=== PATIENT | female | born 1955 | race Caucasian/White ===

== ENCOUNTER 2018-01-21 16:00 | Outpatient (RCR) | payer OTHER, SELFPAY ==
--- NOTE | 2017-09-12 18:09 | PT.OIE ---
Current Diagnoses Low back pain (09/11/17) Provider Visit Care Team Role Provider Type Radha Haynes MD Attending Provider Non-Staff Primary Care Provider Specialty: Family Practice Address: [address] [place] [address], [place], [address] Email: Physical Therapy Initial Evaluation PT-OP-A Visit Information Start: 09/12/17 17:34 Freq: Status: Active Protocol: Document 09/11/17 10:00 [facility] (Rec: 09/12/17 17:47 [facility] [email or web address]) Out-Patient Physical Therapy Visit Information Visit Information Visit Type Initial Evaluation Visit Start Time 10:00 Visit Stop Time 10:45 Total Visit Minutes 45 Visit Number 1 Evaluation Information Evaluation Date 09/11/17 PT-OP-B Current Condition Start: 09/12/17 17:34 Freq: Status: Active Protocol: Document 09/11/17 10:00 [facility] (Rec: 09/12/17 17:47 [facility] [email or web address]) Current Condition History of Current Condition Onset Date 3 1/2 weeks ago pain began following a hike Current Complaints c/o SI joint pain and left gluteal pain, pain across the anterior pelvis History of Current Condition 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 She reports she tries to get back into shape once school is out each year. She has done minimal walking this past school year. 3 1/2 weeks ago she went on a hike and up was uphill. She began noting pain in her SI joint and left gluteal region a few days afterward and the pain then increased over the next few days. 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 Decreased flexibility of the piriformis and iliopsoas Joint Mobility Assessment Joint Mobility Assessment + tests for SI instability + ASLR test B PT-OP-J Posture/Palpation/Skin Start: 09/12/17 17:34 Freq: Status: Active Protocol: Document 09/11/17 10:00 [facility] (Rec: 09/12/17 18:07 [facility] [email or web address]) Posture Evaluation Position Standing L-Spine Posture Increased Lordosis Palpation Assessment Location Three Palpation Location B PSIS Palpation Findings Tenderness Two Palpation Location lumbar paraspinals Palpation Findings Soft Tissue Tightness Spasm Muscle Guarding One Palpation Location left piriformis Palpation Findings Soft Tissue Tightness Spasm Muscle Guarding Tenderness PT-OP-K Range of Motion Start: 09/12/17 17:34 Freq: Status: Active Protocol: Document 09/11/17 10:00 [facility] (Rec: 09/12/17 18:07 [facility] [email or web address]) Lumbar Spine Range of Motion Lumbar Spine Active Testing Position standing Flexion 50 Comments decreased lumbar flexion and flattened lumbar spine with forward bend PT-OP-M Strength Start: 09/12/17 18:07 Freq: Status: Active Protocol: Document 09/11/17 10:00 [facility] (Rec: 09/12/17 18:08 [facility] [email or web address]) Trunk Strength Trunk Manual Muscle Testing Core Stabilization Decreased activation of the transverse abdominal musculature and + ASLR test B Hip Strength Hip Manual Muscle Testing Right Extension (S1) 4 Good Abduction 4 Good Left Extension (S1) 3+ Fair+ Abduction 3+ Fair+ PT-OP-Q Treatments Start: 09/12/17 17:34 Freq: Status: Active Protocol: Document 09/11/17 10:00 [facility] (Rec: 09/12/17 18:07 [facility] [email or web address]) Therapeutic Exercises Other Exercises 3 Other Exercise Name TA isolation in quadraped Side bilateral Reps/Minutes 10 reps 2 Other Exercise Name half kneeling hip flexor stretch 1 Other Exercise Name quadraped cat/cow Side bilateral Reps/Minutes 10 reps PT-OP-T Assessment and Plan Start: 09/12/17 17:34 Freq: Status: Active Protocol: Document 09/11/17 10:00 [facility] (Rec: 09/12/17 18:07 [facility] [email or web address]) Physical Therapy Assessment Rehab Potential Rehabilitation Potential Excellent Evaluation Complexity Number of Personal Factors/Comorbidities 0 Number of Body Systems Impaired 1-2 Clinical Presentation at Evaluation Stable Impairments Impairments Functional Activities Pain Posture ROM Soft Tissue Mobility Strength Goals Four Impairment Decreased strength of the inner core musculatrue with SI instability Casing Tier Goal (LTG) Improve both pelvic floor and transverse abdominal strength to improve SI and lumbar stability LTG Duration 8 weeks Three Impairment pain rated 3-4/10 made worse with activity Casing Tier Goal (LTG) Tabitha reports a decreased pain level and is able to return to walking and hiking without pain following Two Impairment Decreased lumbar ROM into flexion Short Term Goal (STG) Tabitha is able to perform a standing forward bend with improved lumbar flexion STG Duration 6 weeks One Impairment decreased flexibility of the piriformis and hip flexors L>R Short Term Goal (STG) Tabitha is educated on a home flexibility program to address tightness in the hip musculature STG Duration 4 weeks Assessment Summary Assessment Tabitha presents to physical therapy today with symptoms of SI instability, weakness of her core musculature, and tightness in the left > right hip creating SI dysfunction and pain. She is limited in walking and hiking duration due to pain She was instructed in lumbar spine flexion exercises today and a stretching routine was initiated to begin reducing tightness in her iliopsoas and piriformis. Treatment will progress to dynamic stabilization as her goal is to return to hiking. Physical Therapy Plan Frequency and Duration Frequency of Treatment 2x/Week Duration of Treatment 8 weeks Plan of Care Start Date 09/11/17 Plan of Care End Date 11/06/17 Therapeutic Interventions Therapeutic Interventions Home Exercise Program Manual Therapy Neuromuscular Re-education Self-Care/Home Management Soft Tissue Mobilization Therapeutic Exercises Modalities Cold Pack/Ice Massage Ultrasound Next Visit Focus/Plan Next Note Type Treatment Note Next Visit Plan begin working on TA facilitation in supine and progress stretches as tolerated
--- NOTE | 2017-09-12 18:10 | PT.OPPOC ---
Current Diagnoses Low back pain (09/11/17) Provider Visit Care Team Role Provider Type Radha Haynes MD Attending Provider Non-Staff Primary Care Provider Specialty: Family Practice Address: [address] [place] [address], [place], [address] Email: Plan Of Care PT-OP-T Assessment and Plan Start: 09/12/17 17:34 Freq: Status: Active Protocol: Document 09/11/17 10:00 [facility] (Rec: 09/12/17 18:07 [facility] [email or web address]) Physical Therapy Assessment Rehab Potential Rehabilitation Potential Excellent Evaluation Complexity Number of Personal Factors/Comorbidities 0 Number of Body Systems Impaired 1-2 Clinical Presentation at Evaluation Stable Impairments Impairments Functional Activities Pain Posture ROM Soft Tissue Mobility Strength Goals Four Impairment Decreased strength of the inner core musculatrue with SI instability Computer Networking Instructor Adjunct Goal (LTG) Improve both pelvic floor and transverse abdominal strength to improve SI and lumbar stability LTG Duration 8 weeks Three Impairment pain rated 3-4/10 made worse with activity Jail Goal (LTG) Tabitha reports a decreased pain level and is able to return to walking and hiking without pain following Two Impairment Decreased lumbar ROM into flexion Short Term Goal (STG) Tabitha is able to perform a standing forward bend with improved lumbar flexion STG Duration 6 weeks One Impairment decreased flexibility of the piriformis and hip flexors L>R Short Term Goal (STG) Tabitha is educated on a home flexibility program to address tightness in the hip musculature STG Duration 4 weeks Assessment Summary Assessment Tabitha presents to physical therapy today with symptoms of SI instability, weakness of her core musculature, and tightness in the left > right hip creating SI dysfunction and pain. She is limited in walking and hiking duration due to painShe was instructed in lumbar spine flexion exercises today and a stretching routine was initiated to begin reducing tightness in her iliopsoas and piriformis. Treatment will progress to dynamic stabilization as her goal is to return to hiking. Physical Therapy Plan Frequency and Duration Frequency of Treatment 2x/Week Duration of Treatment 8 weeks Plan of Care Start Date 09/11/17 Plan of Care End Date 11/06/17 Therapeutic Interventions Therapeutic Interventions Home Exercise Program Manual Therapy Neuromuscular Re-education Self-Care/Home Management Soft Tissue Mobilization Therapeutic Exercises Modalities Cold Pack/Ice Massage Ultrasound Next Visit Focus/Plan Next Note Type Treatment Note Next Visit Plan begin working on TA facilitation in supine and progress stretches as tolerated Plan of Care Dates Plan of Care Start Date 09/11/17 Plan of Care End Date 11/06/17 Please Sign and Return: I have reviewed this Plan of Care and certify that the skilled therapy services above are required to meet the patient?s needs. Physician Signature Date Printed Name and Credentials Clinical Instructor Signature Printed Name and Credentials
--- NOTE | 2017-09-24 08:55 | PT.OTN ---
Current Diagnoses Low back pain (09/19/17) Physical Therapy Treatment Note PT-OP-A Visit Information Start: 09/12/17 17:34 Freq: Status: Active Protocol: Document 09/19/17 11:15 [facility] (Rec: 09/19/17 17:57 [facility] [email or web address]) Out-Patient Physical Therapy Visit Information Visit Information Visit Type Treatment Note Visit Start Time 11:15 Visit Stop Time 12:00 Total Visit Minutes 45 Visit Number 2 Number of TABLE TENDER SLUDGE Visits 0 PT-OP-B Current Condition Start: 09/12/17 17:34 Freq: Status: Active Protocol: Document 09/11/17 10:00 [facility] (Rec: 09/12/17 17:47 [facility] [email or web address]) Current Condition History of Current Condition Onset Date 3 1/2 weeks ago pain began following a hike Current Complaints c/o SI joint pain and left gluteal pain, pain across the anterior pelvis History of Current Condition 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 She reports she tries to get back into shape once school is out each year. She has done minimal walking this past school year. 3 1/2 weeks ago she went on a hike and up was uphill. She began noting pain in her SI joint and left gluteal region a few days afterward and the pain then increased over the next few days. 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 left leg being longer Treatment Goals Patient/Caregiver Goals tabitha's goals include knowing what stretches and strengthening exercises to do at home to prevent further pain and to return to hiking and walking PT-OP-C Subjective Start: 09/12/17 17:34 Freq: Status: Active Protocol: Document 09/19/17 11:15 [facility] (Rec: 09/19/17 17:57 [facility] [email or web address]) OP-PT Subjective Patient Comments Patient Comments Liliana reports she has been working on her stretching and walked 5 days this past week Patient Reported Progress Improving PT-OP-F Manual Assessment Start: 09/12/17 17:34 Freq: Status: Active Protocol: Document 09/11/17 10:00 [facility] (Rec: 09/12/17 18:07 [facility] [email or web address]) Manual Assessments Soft Tissue Assessment Soft Tissue Mobility Assessment left greater than right piriformis and iliopsoas tightness. Decreased flexibility of the piriformis and iliopsoas Joint Mobility Assessment Joint Mobility Assessment + tests for SI instability + ASLR test B PT-OP-J Posture/Palpation/Skin Start: 09/12/17 17:34 Freq: Status: Active Protocol: Document 09/11/17 10:00 [facility] (Rec: 09/12/17 18:07 [facility] [email or web address]) Posture Evaluation Position Standing L-Spine Posture Increased Lordosis Palpation Assessment Location Three Palpation Location B PSIS Palpation Findings Tenderness Two Palpation Location lumbar paraspinals Palpation Findings Soft Tissue Tightness Spasm Muscle Guarding One Palpation Location left piriformis Palpation Findings Soft Tissue Tightness Spasm Muscle Guarding Tenderness PT-OP-K Range of Motion Start: 09/12/17 17:34 Freq: Status: Active Protocol: Document 09/11/17 10:00 [facility] (Rec: 09/12/17 18:07 [facility] [email or web address]) Lumbar Spine Range of Motion Lumbar Spine Active Testing Position standing Flexion 50 Comments decreased lumbar flexion and flattened lumbar spine with forward bend PT-OP-M Strength Start: 09/12/17 18:07 Freq: Status: Active Protocol: Document 09/11/17 10:00 [facility] (Rec: 09/12/17 18:08 [facility] [email or web address]) Trunk Strength Trunk Manual Muscle Testing Core Stabilization Decreased activation of the transverse abdominal musculature and + ASLR test B Hip Strength Hip Manual Muscle Testing Right Extension (S1) 4 Good Abduction 4 Good Left Extension (S1) 3+ Fair+ Abduction 3+ Fair+ PT-OP-Q Treatments Start: 09/12/17 17:34 Freq: Status: Active Protocol: Document 09/19/17 11:15 [facility] (Rec: 09/19/17 17:57 [facility] [email or web address]) Therapeutic Exercises Supine Exercises 1 Supine Exercise Name TA facilitation with marches Sidelying Exercises 1 Sidelying Exercise Name clam shells Sitting Exercises 1 Sitting Exercise Name seated sidebends Other Exercises 4 Other Exercise Name foam roll stretch 3 Other Exercise Name TA isolation in quadraped Side bilateral Reps/Minutes 10 reps 2 Other Exercise Name half kneeling hip flexor stretch 1 Other Exercise Name quadraped cat/cow, sidebends, thoracic rotation Side bilateral Reps/Minutes 10 reps PT-OP-T Assessment and Plan Start: 09/12/17 17:34 Freq: Status: Active Protocol: Document 09/19/17 11:15 [facility] (Rec: 09/19/17 17:57 [facility] [email or web address]) Physical Therapy Assessment Assessment Summary Assessment good tolerance of ther ex, TA facilitation is difficult but continue to focus on this and improve stabilization of deep hip rotators Physical Therapy Plan Frequency and Duration Frequency of Treatment 2x/Week Duration of Treatment 8 weeks Plan of Care Start Date 09/11/17 Plan of Care End Date 11/06/17 Therapeutic Interventions Therapeutic Interventions Home Exercise Program Manual Therapy Neuromuscular Re-education Self-Care/Home Management Soft Tissue Mobilization Therapeutic Exercises Modalities Cold Pack/Ice Massage Ultrasound Next Visit Focus/Plan Next Visit Plan continue working on improved stabilization exercises and stretches as tolerated
--- NOTE | 2017-09-24 14:09 | PT.OTN ---
Current Diagnoses Low back pain (09/24/17) Physical Therapy Treatment Note PT-OP-A Visit Information Start: 09/12/17 17:34 Freq: Status: Active Protocol: Document 09/24/17 13:00 [facility] (Rec: 09/24/17 14:09 [facility] [email or web address]) Out-Patient Physical Therapy Visit Information Visit Information Visit Type Treatment Note Visit Start Time 13:00 Visit Stop Time 13:45 Total Visit Minutes 45 Visit Number 3 Number of PRODUCE BUYER Visits 0 PT-OP-B Current Condition Start: 09/12/17 17:34 Freq: Status: Active Protocol: Document 09/11/17 10:00 [facility] (Rec: 09/12/17 17:47 [facility] [email or web address]) Current Condition History of Current Condition Onset Date 3 1/2 weeks ago pain began following a hike Current Complaints c/o SI joint pain and left gluteal pain, pain across the anterior pelvis History of Current Condition 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 She reports she tries to get back into shape once school is out each year. She has done minimal walking this past school year. 3 1/2 weeks ago she went on a hike and up was uphill. She began noting pain in her SI joint and left gluteal region a few days afterward and the pain then increased over the next few days. 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 left leg being longer Treatment Goals Patient/Caregiver Goals tabitha's goals include knowing what stretches and strengthening exercises to do at home to prevent further pain and to return to hiking and walking PT-OP-C Subjective Start: 09/12/17 17:34 Freq: Status: Active Protocol: Document 09/24/17 13:00 [facility] (Rec: 09/24/17 14:09 [facility] [email or web address]) OP-PT Subjective Patient Comments Patient Comments Tabitha reports very low pain levels today like .5/10 She has been working on her stretches and walking Patient Reported Progress Improving PT-OP-F Manual Assessment Start: 09/12/17 17:34 Freq: Status: Active Protocol: Document 09/11/17 10:00 [facility] (Rec: 09/12/17 18:07 [facility] [email or web address]) Manual Assessments Soft Tissue Assessment Soft Tissue Mobility Assessment left greater than right piriformis and iliopsoas tightness. Decreased flexibility of the piriformis and iliopsoas Joint Mobility Assessment Joint Mobility Assessment + tests for SI instability + ASLR test B PT-OP-J Posture/Palpation/Skin Start: 09/12/17 17:34 Freq: Status: Active Protocol: Document 09/11/17 10:00 [facility] (Rec: 09/12/17 18:07 [facility] [email or web address]) Posture Evaluation Position Standing L-Spine Posture Increased Lordosis Palpation Assessment Location Three Palpation Location B PSIS Palpation Findings Tenderness Two Palpation Location lumbar paraspinals Palpation Findings Soft Tissue Tightness Spasm Muscle Guarding One Palpation Location left piriformis Palpation Findings Soft Tissue Tightness Spasm Muscle Guarding Tenderness PT-OP-K Range of Motion Start: 09/12/17 17:34 Freq: Status: Active Protocol: Document 09/11/17 10:00 [facility] (Rec: 09/12/17 18:07 [facility] [email or web address]) Lumbar Spine Range of Motion Lumbar Spine Active Testing Position standing Flexion 50 Comments decreased lumbar flexion and flattened lumbar spine with forward bend PT-OP-M Strength Start: 09/12/17 18:07 Freq: Status: Active Protocol: Document 09/11/17 10:00 [facility] (Rec: 09/12/17 18:08 [facility] [email or web address]) Trunk Strength Trunk Manual Muscle Testing Core Stabilization Decreased activation of the transverse abdominal musculature and + ASLR test B Hip Strength Hip Manual Muscle Testing Right Extension (S1) 4 Good Abduction 4 Good Left Extension (S1) 3+ Fair+ Abduction 3+ Fair+ PT-OP-Q Treatments Start: 09/12/17 17:34 Freq: Status: Active Protocol: Document 09/24/17 13:00 [facility] (Rec: 09/24/17 14:09 [facility] [email or web address]) Therapeutic Exercises Supine Exercises 3 Supine Exercise Name iliopsoas stretch in ar test position with manual assistance 2 Supine Exercise Name piriformis stretch 1 Supine Exercise Name TA facilitation with marches Other Exercises 6 Other Exercise Name kiki pose 5 Other Exercise Name TA in quadraped with opp arm lifts 4 Other Exercise Name foam roll stretch Comments with active arm abduction and opp flexion 3 Other Exercise Name TA isolation in quadraped Side bilateral Reps/Minutes 10 reps 1 Other Exercise Name quadraped cat/cow, sidebends, thoracic rotation Side bilateral Reps/Minutes 10 reps PT-OP-T Assessment and Plan Start: 09/12/17 17:34 Freq: Status: Active Protocol: Document 09/24/17 13:00 [facility] (Rec: 09/24/17 14:09 [facility] [email or web address]) Physical Therapy Assessment Assessment Summary Assessment decreased complaints of pain and improving iliopsoas length Physical Therapy Plan Frequency and Duration Frequency of Treatment 2x/Week Duration of Treatment 8 weeks Plan of Care Start Date 09/11/17 Plan of Care End Date 11/06/17 Therapeutic Interventions Therapeutic Interventions Home Exercise Program Manual Therapy Neuromuscular Re-education Self-Care/Home Management Soft Tissue Mobilization Therapeutic Exercises Modalities Cold Pack/Ice Massage Ultrasound Next Visit Focus/Plan Next Note Type Treatment Note Next Visit Plan continue working on improved stabilization exercises and stretches as tolerated. Progress dynamic stabilization
--- NOTE | 2017-10-01 18:09 | PT.OTN ---
Current Diagnoses Low back pain (10/01/17) Physical Therapy Treatment Note PT-OP-A Visit Information Start: 09/12/17 17:34 Freq: Status: Active Protocol: Document 10/01/17 17:58 [facility] (Rec: 10/01/17 18:09 [facility] [email or web address]) Out-Patient Physical Therapy Visit Information Visit Information Visit Type Treatment Note Visit Start Time 13:00 Visit Stop Time 13:45 Total Visit Minutes 45 Visit Number 4 Number of POWERHOUSE MECHANIC Visits 0 PT-OP-B Current Condition Start: 09/12/17 17:34 Freq: Status: Active Protocol: Document 09/11/17 10:00 [facility] (Rec: 09/12/17 17:47 [facility] [email or web address]) Current Condition History of Current Condition Onset Date 3 1/2 weeks ago pain began following a hike Current Complaints c/o SI joint pain and left gluteal pain, pain across the anterior pelvis History of Current Condition 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 She reports she tries to get back into shape once school is out each year. She has done minimal walking this past school year. 3 1/2 weeks ago she went on a hike and up was uphill. She began noting pain in her SI joint and left gluteal region a few days afterward and the pain then increased over the next few days. 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 left leg being longer Treatment Goals Patient/Caregiver Goals tabitha's goals include knowing what stretches and strengthening exercises to do at home to prevent further pain and to return to hiking and walking PT-OP-C Subjective Start: 09/12/17 17:34 Freq: Status: Active Protocol: Document 10/01/17 17:58 [facility] (Rec: 10/01/17 18:09 [facility] [email or web address]) OP-PT Subjective Patient Comments Patient Comments Tabitha continues to note low pain levels and has been working on her home program Patient Reported Progress Improving PT-OP-F Manual Assessment Start: 09/12/17 17:34 Freq: Status: Active Protocol: Document 09/11/17 10:00 [facility] (Rec: 09/12/17 18:07 [facility] [email or web address]) Manual Assessments Soft Tissue Assessment Soft Tissue Mobility Assessment left greater than right piriformis and iliopsoas tightness. Decreased flexibility of the piriformis and iliopsoas Joint Mobility Assessment Joint Mobility Assessment + tests for SI instability + ASLR test B PT-OP-J Posture/Palpation/Skin Start: 09/12/17 17:34 Freq: Status: Active Protocol: Document 09/11/17 10:00 [facility] (Rec: 09/12/17 18:07 [facility] [email or web address]) Posture Evaluation Position Standing L-Spine Posture Increased Lordosis Palpation Assessment Location Three Palpation Location B PSIS Palpation Findings Tenderness Two Palpation Location lumbar paraspinals Palpation Findings Soft Tissue Tightness Spasm Muscle Guarding One Palpation Location left piriformis Palpation Findings Soft Tissue Tightness Spasm Muscle Guarding Tenderness PT-OP-K Range of Motion Start: 09/12/17 17:34 Freq: Status: Active Protocol: Document 09/11/17 10:00 [facility] (Rec: 09/12/17 18:07 [facility] [email or web address]) Lumbar Spine Range of Motion Lumbar Spine Active Testing Position standing Flexion 50 Comments decreased lumbar flexion and flattened lumbar spine with forward bend PT-OP-M Strength Start: 09/12/17 18:07 Freq: Status: Active Protocol: Document 09/11/17 10:00 [facility] (Rec: 09/12/17 18:08 [facility] [email or web address]) Trunk Strength Trunk Manual Muscle Testing Core Stabilization Decreased activation of the transverse abdominal musculature and + ASLR test B Hip Strength Hip Manual Muscle Testing Right Extension (S1) 4 Good Abduction 4 Good Left Extension (S1) 3+ Fair+ Abduction 3+ Fair+ PT-OP-Q Treatments Start: 09/12/17 17:34 Freq: Status: Active Protocol: Document 10/01/17 17:58 [facility] (Rec: 10/01/17 18:09 [facility] [email or web address]) Therapeutic Exercises Supine Exercises 3 Supine Exercise Name iliopsoas stretch in ar test position with manual assistance 2 Supine Exercise Name piriformis stretch 1 Supine Exercise Name TA facilitation with marches Comments level 1 b Sidelying Exercises 1 Sidelying Exercise Name clam shells Other Exercises 6 Other Exercise Name kiki pose Comments walk hands side to side 5 Other Exercise Name TA in quadraped with opp arm lifts and opp leg lifts 3 Other Exercise Name TA isolation in quadraped Side bilateral Reps/Minutes 10 reps 1 Other Exercise Name quadraped cat/cow, sidebends, thoracic rotation Side bilateral Reps/Minutes 10 reps PT-OP-T Assessment and Plan Start: 09/12/17 17:34 Freq: Status: Active Protocol: Document 10/01/17 17:58 [facility] (Rec: 10/01/17 18:09 [facility] [email or web address]) Physical Therapy Assessment Assessment Summary Assessment good progress, begin to work on dynamic lumbar stabilzation in upright positions Physical Therapy Plan Frequency and Duration Frequency of Treatment 2x/Week Duration of Treatment 8 weeks Plan of Care Start Date 09/11/17 Plan of Care End Date 11/06/17 Therapeutic Interventions Therapeutic Interventions Home Exercise Program Manual Therapy Neuromuscular Re-education Self-Care/Home Management Soft Tissue Mobilization Therapeutic Exercises Modalities Cold Pack/Ice Massage Ultrasound Next Visit Focus/Plan Next Note Type Treatment Note Next Visit Plan begin working on upright stabilization and dynamic stabilization
--- NOTE | 2017-10-07 06:24 | PT.OTN ---
Current Diagnoses Low back pain (10/03/17) Physical Therapy Treatment Note PT-OP-A Visit Information Start: 09/12/17 17:34 Freq: Status: Active Protocol: Document 10/03/17 13:00 [facility] (Rec: 10/07/17 06:24 [facility] [email or web address]) Out-Patient Physical Therapy Visit Information Visit Information Visit Type Treatment Note Visit Start Time 13:00 Visit Stop Time 13:45 Total Visit Minutes 45 Visit Number 5 Number of SIGNAL WORKER HELPER Visits 0 PT-OP-B Current Condition Start: 09/12/17 17:34 Freq: Status: Active Protocol: Document 09/11/17 10:00 [facility] (Rec: 09/12/17 17:47 [facility] [email or web address]) Current Condition History of Current Condition Onset Date 3 1/2 weeks ago pain began following a hike Current Complaints c/o SI joint pain and left gluteal pain, pain across the anterior pelvis History of Current Condition 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 She reports she tries to get back into shape once school is out each year. She has done minimal walking this past school year. 3 1/2 weeks ago she went on a hike and up was uphill. She began noting pain in her SI joint and left gluteal region a few days afterward and the pain then increased over the next few days. 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 Patient Reported Progress Improving PT-OP-F Manual Assessment Start: 09/12/17 17:34 Freq: Status: Active Protocol: Document 09/11/17 10:00 [facility] (Rec: 09/12/17 18:07 [facility] [email or web address]) Manual Assessments Soft Tissue Assessment Soft Tissue Mobility Assessment left greater than right piriformis and iliopsoas tightness. Decreased flexibility of the piriformis and iliopsoas Joint Mobility Assessment Joint Mobility Assessment + tests for SI instability + ASLR test B PT-OP-J Posture/Palpation/Skin Start: 09/12/17 17:34 Freq: Status: Active Protocol: Document 09/11/17 10:00 [facility] (Rec: 09/12/17 18:07 [facility] [email or web address]) Posture Evaluation Position Standing L-Spine Posture Increased Lordosis Palpation Assessment Location Three Palpation Location B PSIS Palpation Findings Tenderness Two Palpation Location lumbar paraspinals Palpation Findings Soft Tissue Tightness Spasm Muscle Guarding One Palpation Location left piriformis Palpation Findings Soft Tissue Tightness Spasm Muscle Guarding Tenderness PT-OP-K Range of Motion Start: 09/12/17 17:34 Freq: Status: Active Protocol: Document 09/11/17 10:00 [facility] (Rec: 09/12/17 18:07 [facility] [email or web address]) Lumbar Spine Range of Motion Lumbar Spine Active Testing Position standing Flexion 50 Comments decreased lumbar flexion and flattened lumbar spine with forward bend PT-OP-M Strength Start: 09/12/17 18:07 Freq: Status: Active Protocol: Document 09/11/17 10:00 [facility] (Rec: 09/12/17 18:08 [facility] [email or web address]) Trunk Strength Trunk Manual Muscle Testing Core Stabilization Decreased activation of the transverse abdominal musculature and + ASLR test B Hip Strength Hip Manual Muscle Testing Right Extension (S1) 4 Good Abduction 4 Good Left Extension (S1) 3+ Fair+ Abduction 3+ Fair+ PT-OP-Q Treatments Start: 09/12/17 17:34 Freq: Status: Active Protocol: Document 10/03/17 13:00 [facility] (Rec: 10/07/17 06:24 [facility] [email or web address]) Therapeutic Exercises Supine Exercises 3 Supine Exercise Name iliopsoas stretch in ar test position with manual assistance 2 Supine Exercise Name piriformis stretch 1 Supine Exercise Name TA facilitation with marches Comments level 1 b Sidelying Exercises 1 Sidelying Exercise Name clam shells Equipment Used level 1 resistance band Reps/Minutes 3x10 Sitting Exercises 1 Sitting Exercise Name seated sidebends Standing Exercises 1 Standing Exercise Name standing squats and mini lunges Reps/Minutes 2 x 10 each Comments with core activation Other Exercises 6 Other Exercise Name kiki pose Comments walk hands side to side 5 Other Exercise Name TA in quadraped with opp arm lifts and opp leg lifts 4 Other Exercise Name foam roll stretch Comments with active arm abduction and opp flexion 3 Other Exercise Name TA isolation in quadraped Side bilateral Reps/Minutes 10 reps 2 Other Exercise Name half kneeling hip flexor stretch 1 Other Exercise Name quadraped cat/cow, sidebends, thoracic rotation Side bilateral Reps/Minutes 10 reps PT-OP-T Assessment and Plan Start: 09/12/17 17:34 Freq: Status: Active Protocol: Document 10/03/17 13:00 [facility] (Rec: 10/07/17 06:24 [facility] [email or web address]) Physical Therapy Assessment Assessment Summary Assessment Tabitha was able to tolerate upright dynamic strengthening with squats and lunges. She requires verbal cues for knee positioning. She would benefit from continuing to progress dynamic exercises Physical Therapy Plan Frequency and Duration Frequency of Treatment 2x/Week Duration of Treatment 8 weeks Plan of Care Start Date 09/11/17 Plan of Care End Date 11/06/17 Therapeutic Interventions Therapeutic Interventions Home Exercise Program Manual Therapy Neuromuscular Re-education Self-Care/Home Management Soft Tissue Mobilization Therapeutic Exercises Modalities Cold Pack/Ice Massage Ultrasound Next Visit Focus/Plan Next Note Type Treatment Note Next Visit Plan continue to focus on dynamic stabilization for SI stability and flexbility exercises
--- NOTE | 2017-12-10 17:40 | PT.OTN ---
Current Diagnoses Low back pain (12/10/17) Physical Therapy Treatment Note PT-OP-A Visit Information Start: 09/12/17 17:34 Freq: Status: Active Protocol: Document 12/10/17 17:33 [facility] (Rec: 12/10/17 17:40 [facility] [email or web address]) Out-Patient Physical Therapy Visit Information Visit Information Visit Type Progress Note Visit Start Time 16:00 Visit Stop Time 16:45 Total Visit Minutes 45 Visit Number 6 Evaluation Information Evaluation Date 09/11/17 PT-OP-B Current Condition Start: 09/12/17 17:34 Freq: Status: Active Protocol: Document 09/11/17 10:00 [facility] (Rec: 09/12/17 17:47 [facility] [email or web address]) Current Condition History of Current Condition Onset Date 3 1/2 weeks ago pain began following a hike Current Complaints c/o SI joint pain and left gluteal pain, pain across the anterior pelvis History of Current Condition 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 She reports she tries to get back into shape once school is out each year. She has done minimal walking this past school year. 3 1/2 weeks ago she went on a hike and up was uphill. She began noting pain in her SI joint and left gluteal region a few days afterward and the pain then increased over the next few days. 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 She is feeling ready to progress her exercises and needs guidance on resistance exercises Patient Reported Progress Improving PT-OP-F Manual Assessment Start: 09/12/17 17:34 Freq: Status: Active Protocol: Document 12/10/17 17:33 [facility] (Rec: 12/10/17 17:40 [facility] [email or web address]) Manual Assessments Soft Tissue Assessment Soft Tissue Mobility Assessment improving mobility of the iliopsoas and piriformis Joint Mobility Assessment Joint Mobility Assessment negative SI tests now PT-OP-J Posture/Palpation/Skin Start: 09/12/17 17:34 Freq: Status: Active Protocol: Document 09/11/17 10:00 [facility] (Rec: 09/12/17 18:07 [facility] [email or web address]) Posture Evaluation Position Standing L-Spine Posture Increased Lordosis Palpation Assessment Location Three Palpation Location B PSIS Palpation Findings Tenderness Two Palpation Location lumbar paraspinals Palpation Findings Soft Tissue Tightness Spasm Muscle Guarding One Palpation Location left piriformis Palpation Findings Soft Tissue Tightness Spasm Muscle Guarding Tenderness PT-OP-K Range of Motion Start: 09/12/17 17:34 Freq: Status: Active Protocol: Document 12/10/17 17:33 [facility] (Rec: 12/10/17 17:40 [facility] [email or web address]) Lumbar Spine Range of Motion Lumbar Spine Active Testing Position standing Flexion 80 Comments Improved Lumbar spine ROM into flexion PT-OP-M Strength Start: 09/12/17 18:07 Freq: Status: Active Protocol: Document 09/11/17 10:00 [facility] (Rec: 09/12/17 18:08 [facility] [email or web address]) Trunk Strength Trunk Manual Muscle Testing Core Stabilization Decreased activation of the transverse abdominal musculature and + ASLR test B Hip Strength Hip Manual Muscle Testing Right Extension (S1) 4 Good Abduction 4 Good Left Extension (S1) 3+ Fair+ Abduction 3+ Fair+ PT-OP-Q Treatments Start: 09/12/17 17:34 Freq: Status: Active Protocol: Document 12/10/17 17:33 [facility] (Rec: 12/10/17 17:40 [facility] [email or web address]) Gym Equipment Cable Column (Body Solid) Rows Resistance 20# Reps/Time 2 x 10 Lat Pull Down Resistance 20 # Reps/Time 2 x 10 Shuttle Rebound 1 Exercise Details leg press bilateral Reps/Duration 50 # 3 x 10 Therapeutic Exercises Supine Exercises 3 Supine Exercise Name iliopsoas stretch in ar test position with manual assistance Other Exercises 7 Other Exercise Name standing squats and lunges using cables as a support 5 Other Exercise Name TA in quadraped with opp arm lifts and opp leg lifts 3 Other Exercise Name TA isolation in quadraped Side bilateral Reps/Minutes 10 reps 1 Other Exercise Name quadraped cat/cow, sidebends, thoracic rotation Side bilateral Reps/Minutes 10 reps PT-OP-T Assessment and Plan Start: 09/12/17 17:34 Freq: Status: Active Protocol: Document 12/10/17 17:33 [facility] (Rec: 12/10/17 17:40 [facility] [email or web address]) Physical Therapy Assessment Progress Towards Goals Progress Towards Goals Progressing Toward Goals Assessment Summary Assessment Tabitha has not been seen since September and has been working on her exercises independently. Her pain levels are reduced overall and she is happy with her progress. At this point she is much more stable in her SI joint and lumbar spine ROM has improved. I began added weight resisted exercises today to her program. Tabitha would benefit from continued PT to progress weightbearing exercises for her LE and spine Physical Therapy Plan Frequency and Duration Frequency of Treatment 2x/Week Duration of Treatment 8 weeks Plan of Care Start Date 12/10/17 Plan of Care End Date 02/04/18 Therapeutic Interventions Therapeutic Interventions Home Exercise Program Manual Therapy Neuromuscular Re-education Self-Care/Home Management Soft Tissue Mobilization Therapeutic Exercises Modalities Cold Pack/Ice Massage Ultrasound Next Visit Focus/Plan Next Note Type Treatment Note Next Visit Plan continue to focus on dynamic stabilization for SI stability and flexbility exercises
--- NOTE | 2017-12-10 17:41 | PT.OPPOC ---
Current Diagnoses Low back pain (12/10/17) Provider Visit Care Team Role Provider Type Radha Haynes MD Attending Provider Non-Staff Primary Care Provider Specialty: Family Practice Address: [address], [place], [address] Email: Plan Of Care PT-OP-T Assessment and Plan Start: 09/12/17 17:34 Freq: Status: Active Protocol: Document 12/10/17 17:33 [facility] (Rec: 12/10/17 17:40 [facility] [email or web address]) Physical Therapy Assessment Progress Towards Goals Progress Towards Goals Progressing Toward Goals Assessment Summary Assessment Tabitha has not been seen since September and has been working on her exercises independently. Her pain levels are reduced overall and she is happy with her progress. At this point she is much more stable in her SI joint and lumbar spine ROM has improved. I began added weight resisted exercises today to her program. Tabitha would benefit from continued PT to progress weightbearing exercises for her LE and spine Physical Therapy Plan Frequency and Duration Frequency of Treatment 2x/Week Duration of Treatment 8 weeks Plan of Care Start Date 12/10/17 Plan of Care End Date 02/04/18 Therapeutic Interventions Therapeutic Interventions Home Exercise Program Manual Therapy Neuromuscular Re-education Self-Care/Home Management Soft Tissue Mobilization Therapeutic Exercises Modalities Cold Pack/Ice Massage Ultrasound Next Visit Focus/Plan Next Note Type Treatment Note Next Visit Plan continue to focus on dynamic stabilization for SI stability and flexibility exercises Plan of Care Dates Plan of Care Start Date 12/10/17 Plan of Care End Date 02/04/18 Please Sign and Return: I have reviewed this Plan of Care and certify that the skilled therapy services above are required to meet the patient?s needs. Physician Signature Date Printed Name and Credentials Clinical Instructor Signature Printed Name and Credentials
--- NOTE | 2017-12-12 17:00 | PT.OTN ---
Current Diagnoses Low back pain (12/12/17) Physical Therapy Treatment Note PT-OP-A Visit Information Start: 09/12/17 17:34 Freq: Status: Active Protocol: Document 12/12/17 16:53 [facility] (Rec: 12/12/17 17:00 [facility] [email or web address]) Out-Patient Physical Therapy Visit Information Visit Information Visit Type Treatment Note Visit Start Time 16:00 Visit Stop Time 16:45 Total Visit Minutes 45 Visit Number 7 PT-OP-B Current Condition Start: 09/12/17 17:34 Freq: Status: Active Protocol: Document 09/11/17 10:00 [facility] (Rec: 09/12/17 17:47 [facility] [email or web address]) Current Condition History of Current Condition Onset Date 3 1/2 weeks ago pain began following a hike Current Complaints c/o SI joint pain and left gluteal pain, pain across the anterior pelvis History of Current Condition 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 She reports she tries to get back into shape once school is out each year. She has done minimal walking this past school year. 3 1/2 weeks ago she went on a hike and up was uphill. She began noting pain in her SI joint and left gluteal region a few days afterward and the pain then increased over the next few days. 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 left leg being longer Treatment Goals Patient/Caregiver Goals tabitha's goals include knowing what stretches and strengthening exercises to do at home to prevent further pain and to return to hiking and walking PT-OP-C Subjective Start: 09/12/17 17:34 Freq: Status: Active Protocol: Document 12/12/17 16:53 [facility] (Rec: 12/12/17 17:00 [facility] [email or web address]) OP-PT Subjective Patient Comments Patient Comments Tabitha states she tolerated exercises well after last visit. She had a little left sided low back muscle spasm on the drive home but it calmed down by the time she got home. Patient Reported Progress Improving PT-OP-F Manual Assessment Start: 09/12/17 17:34 Freq: Status: Active Protocol: Document 12/10/17 17:33 [facility] (Rec: 12/10/17 17:40 [facility] [email or web address]) Manual Assessments Soft Tissue Assessment Soft Tissue Mobility Assessment improving mobility of the iliopsoas and piriformis Joint Mobility Assessment Joint Mobility Assessment negative SI tests now PT-OP-J Posture/Palpation/Skin Start: 09/12/17 17:34 Freq: Status: Active Protocol: Document 09/11/17 10:00 [facility] (Rec: 09/12/17 18:07 [facility] [email or web address]) Posture Evaluation Position Standing L-Spine Posture Increased Lordosis Palpation Assessment Location Three Palpation Location B PSIS Palpation Findings Tenderness Two Palpation Location lumbar paraspinals Palpation Findings Soft Tissue Tightness Spasm Muscle Guarding One Palpation Location left piriformis Palpation Findings Soft Tissue Tightness Spasm Muscle Guarding Tenderness PT-OP-K Range of Motion Start: 09/12/17 17:34 Freq: Status: Active Protocol: Document 12/10/17 17:33 [facility] (Rec: 12/10/17 17:40 [facility] [email or web address]) Lumbar Spine Range of Motion Lumbar Spine Active Testing Position standing Flexion 80 Comments Improved Lumbar spine ROM into flexion PT-OP-M Strength Start: 09/12/17 18:07 Freq: Status: Active Protocol: Document 09/11/17 10:00 [facility] (Rec: 09/12/17 18:08 [facility] [email or web address]) Trunk Strength Trunk Manual Muscle Testing Core Stabilization Decreased activation of the transverse abdominal musculature and + ASLR test B Hip Strength Hip Manual Muscle Testing Right Extension (S1) 4 Good Abduction 4 Good Left Extension (S1) 3+ Fair+ Abduction 3+ Fair+ PT-OP-Q Treatments Start: 09/12/17 17:34 Freq: Status: Active Protocol: Document 12/12/17 16:53 [facility] (Rec: 12/12/17 17:00 [facility] [email or web address]) Gym Equipment Cable Column (Body Solid) Hip Abduction Resistance 20# Reps/Time 2x 10 Rows Resistance 20# Reps/Time 2 x 10 Lat Pull Down Resistance 20 # Reps/Time 2 x 10 Shuttle Rebound 1 Exercise Details leg press bilateral Reps/Duration 50 # 3 x 10 25# single leg Therapeutic Exercises Supine Exercises 3 Supine Exercise Name iliopsoas stretch in half kneeling 2 Supine Exercise Name piriformis stretch Other Exercises 7 Other Exercise Name standing squats and lunges using cables as a support 5 Other Exercise Name TA in quadraped with opp arm lifts and opp leg lifts 4 Other Exercise Name foam roll stretch Comments with active arm abduction and opp flexion 3 Other Exercise Name TA isolation in quadraped Side bilateral Reps/Minutes 10 reps PT-OP-T Assessment and Plan Start: 09/12/17 17:34 Freq: Status: Active Protocol: Document 12/12/17 16:53 [facility] (Rec: 12/12/17 17:00 [facility] [email or web address]) Physical Therapy Assessment Assessment Summary Assessment Tabitha is demonstrating good form with her new strength training exercises. She needs verbal cues for chin tuck but can correct with cues. Physical Therapy Plan Frequency and Duration Frequency of Treatment 2x/Week Duration of Treatment 8 weeks Plan of Care Start Date 12/10/17 Plan of Care End Date 02/04/18 Therapeutic Interventions Therapeutic Interventions Home Exercise Program Manual Therapy Neuromuscular Re-education Self-Care/Home Management Soft Tissue Mobilization Therapeutic Exercises Modalities Cold Pack/Ice Massage Ultrasound Next Visit Focus/Plan Next Note Type Treatment Note Next Visit Plan continue to focus on dynamic stabilization for SI stability and flexbility exercises
--- NOTE | 2018-01-02 17:25 | PT.OTN ---
Current Diagnoses Low back pain (01/02/18) Physical Therapy Treatment Note PT-OP-A Visit Information Start: 09/12/17 17:34 Freq: Status: Active Protocol: Document 01/02/18 17:03 [facility] (Rec: 01/02/18 17:25 [facility] [email or web address]) Out-Patient Physical Therapy Visit Information Visit Information Visit Type Treatment Note Visit Start Time 16:00 Visit Stop Time 16:45 Total Visit Minutes 45 Visit Number 8 Evaluation Information Evaluation Date 09/11/17 PT-OP-B Current Condition Start: 09/12/17 17:34 Freq: Status: Active Protocol: Document 09/11/17 10:00 [facility] (Rec: 09/12/17 17:47 [facility] [email or web address]) Current Condition History of Current Condition Onset Date 3 1/2 weeks ago pain began following a hike Current Complaints c/o SI joint pain and left gluteal pain, pain across the anterior pelvis History of Current Condition 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 She reports she tries to get back into shape once school is out each year. She has done minimal walking this past school year. 3 1/2 weeks ago she went on a hike and up was uphill. She began noting pain in her SI joint and left gluteal region a few days afterward and the pain then increased over the next few days. 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 left leg being longer Treatment Goals Patient/Caregiver Goals tabitha's goals include knowing what stretches and strengthening exercises to do at home to prevent further pain and to return to hiking and walking PT-OP-C Subjective Start: 09/12/17 17:34 Freq: Status: Active Protocol: Document 01/02/18 17:03 [facility] (Rec: 01/02/18 17:25 [facility] [email or web address]) OP-PT Subjective Patient Comments Patient Comments Tabitha reports she had a set back this past weekend. She had worked out at the gym saturday and then went with her daughter in her truck shopping for the day. She had to climb in and out of the truck multiple times and then the next day she had SI pain PT-OP-F Manual Assessment Start: 09/12/17 17:34 Freq: Status: Active Protocol: Document 12/10/17 17:33 [facility] (Rec: 12/10/17 17:40 [facility] [email or web address]) Manual Assessments Soft Tissue Assessment Soft Tissue Mobility Assessment improving mobility of the iliopsoas and piriformis Joint Mobility Assessment Joint Mobility Assessment negative SI tests now PT-OP-J Posture/Palpation/Skin Start: 09/12/17 17:34 Freq: Status: Active Protocol: Document 09/11/17 10:00 [facility] (Rec: 09/12/17 18:07 [facility] [email or web address]) Posture Evaluation Position Standing L-Spine Posture Increased Lordosis Palpation Assessment Location Three Palpation Location B PSIS Palpation Findings Tenderness Two Palpation Location lumbar paraspinals Palpation Findings Soft Tissue Tightness Spasm Muscle Guarding One Palpation Location left piriformis Palpation Findings Soft Tissue Tightness Spasm Muscle Guarding Tenderness PT-OP-K Range of Motion Start: 09/12/17 17:34 Freq: Status: Active Protocol: Document 12/10/17 17:33 [facility] (Rec: 12/10/17 17:40 [facility] [email or web address]) Lumbar Spine Range of Motion Lumbar Spine Active Testing Position standing Flexion 80 Comments Improved Lumbar spine ROM into flexion PT-OP-M Strength Start: 09/12/17 18:07 Freq: Status: Active Protocol: Document 09/11/17 10:00 [facility] (Rec: 09/12/17 18:08 [facility] [email or web address]) Trunk Strength Trunk Manual Muscle Testing Core Stabilization Decreased activation of the transverse abdominal musculature and + ASLR test B Hip Strength Hip Manual Muscle Testing Right Extension (S1) 4 Good Abduction 4 Good Left Extension (S1) 3+ Fair+ Abduction 3+ Fair+ PT-OP-Q Treatments Start: 09/12/17 17:34 Freq: Status: Active Protocol: Document 01/02/18 17:03 [facility] (Rec: 01/02/18 17:25 [facility] [email or web address]) Therapeutic Exercises Supine Exercises 4 Supine Exercise Name hamstring stretch 2 Supine Exercise Name piriformis stretch 1 Supine Exercise Name TA facilitation in supine Prone Exercises 1 Prone Exercise Name prone quadriceps stretch Other Exercises 8 Other Exercise Name TA with opp arm lifts and opp leg lifts 3 Other Exercise Name TA isolation in quadraped Side bilateral Reps/Minutes 10 reps 1 Other Exercise Name quadraped cat/cow, sidebends, thoracic rotation Side bilateral Reps/Minutes 10 reps Manual Therapy Treatment Manual Techniques 2 Type manual LE stretching 1 Type MET for left posterior innominant rotation PT-OP-T Assessment and Plan Start: 09/12/17 17:34 Freq: Status: Active Protocol: Document 01/02/18 17:03 [facility] (Rec: 01/02/18 17:25 [facility] [email or web address]) Physical Therapy Assessment Assessment Summary Assessment Left posterior innominant rotation MET correction worked well for Tabitha as she was able to tolerate all her mat exercises. We reviewed core stabilization exercises and will go back to standing dynamic exercises next week if she is able to tolerate them Physical Therapy Plan Frequency and Duration Frequency of Treatment 2x/Week Duration of Treatment 8 weeks Plan of Care Start Date 12/10/17 Plan of Care End Date 02/04/18 Therapeutic Interventions Therapeutic Interventions Home Exercise Program Manual Therapy Neuromuscular Re-education Self-Care/Home Management Soft Tissue Mobilization Therapeutic Exercises Modalities Cold Pack/Ice Massage Ultrasound Next Visit Focus/Plan Next Note Type Treatment Note Next Visit Plan reassess leg length and innominant rotation and position of the SI joint
--- NOTE | 2018-01-05 17:48 | PT.OPPN ---
Current Diagnoses Low back pain (01/02/18) Physical Therapy Progress Note PT-OP-A Visit Information Start: 09/12/17 17:34 Freq: Status: Active Protocol: Document 01/02/18 17:03 [facility] (Rec: 01/02/18 17:25 [facility] [email or web address]) Out-Patient Physical Therapy Visit Information Visit Information Visit Type Progress Note Visit Start Time 16:00 Visit Stop Time 16:45 Total Visit Minutes 45 Visit Number 8 Evaluation Information Evaluation Date 09/11/17 PT-OP-B Current Condition Start: 09/12/17 17:34 Freq: Status: Active Protocol: Document 09/11/17 10:00 [facility] (Rec: 09/12/17 17:47 [facility] [email or web address]) Current Condition History of Current Condition Onset Date 3 1/2 weeks ago pain began following a hike Current Complaints c/o SI joint pain and left gluteal pain, pain across the anterior pelvis History of Current Condition 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 She reports she tries to get back into shape once school is out each year. She has done minimal walking this past school year. 3 1/2 weeks ago she went on a hike and up was uphill. She began noting pain in her SI joint and left gluteal region a few days afterward and the pain then increased over the next few days. 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 left leg being longer Treatment Goals Patient/Caregiver Goals tabitha's goals include knowing what stretches and strengthening exercises to do at home to prevent further pain and to return to hiking and walking PT-OP-C Subjective Start: 09/12/17 17:34 Freq: Status: Active Protocol: Document 01/02/18 17:03 [facility] (Rec: 01/02/18 17:25 [facility] [email or web address]) OP-PT Subjective Patient Comments Patient Comments Tabitha reports she had a set back this past weekend. She had worked out at the gym saturday and then went with her daughter in her truck shopping for the day. She had to climb in and out of the truck multiple times and then the next day she had SI pain PT-OP-F Manual Assessment Start: 09/12/17 17:34 Freq: Status: Active Protocol: Document 12/10/17 17:33 [facility] (Rec: 12/10/17 17:40 [facility] [email or web address]) Manual Assessments Soft Tissue Assessment Soft Tissue Mobility Assessment improving mobility of the iliopsoas and piriformis Joint Mobility Assessment Joint Mobility Assessment negative SI tests now PT-OP-J Posture/Palpation/Skin Start: 09/12/17 17:34 Freq: Status: Active Protocol: Document 09/11/17 10:00 [facility] (Rec: 09/12/17 18:07 [facility] [email or web address]) Posture Evaluation Position Standing L-Spine Posture Increased Lordosis Palpation Assessment Location Three Palpation Location B PSIS Palpation Findings Tenderness Two Palpation Location lumbar paraspinals Palpation Findings Soft Tissue Tightness Spasm Muscle Guarding One Palpation Location left piriformis Palpation Findings Soft Tissue Tightness Spasm Muscle Guarding Tenderness PT-OP-K Range of Motion Start: 09/12/17 17:34 Freq: Status: Active Protocol: Document 12/10/17 17:33 [facility] (Rec: 12/10/17 17:40 [facility] [email or web address]) Lumbar Spine Range of Motion Lumbar Spine Active Testing Position standing Flexion 80 Comments Improved Lumbar spine ROM into flexion PT-OP-M Strength Start: 09/12/17 18:07 Freq: Status: Active Protocol: Document 09/11/17 10:00 [facility] (Rec: 09/12/17 18:08 [facility] [email or web address]) Trunk Strength Trunk Manual Muscle Testing Core Stabilization Decreased activation of the transverse abdominal musculature and + ASLR test B Hip Strength Hip Manual Muscle Testing Right Extension (S1) 4 Good Abduction 4 Good Left Extension (S1) 3+ Fair+ Abduction 3+ Fair+ PT-OP-T Assessment and Plan Start: 09/12/17 17:34 Freq: Status: Active Protocol: Document 01/02/18 17:03 [facility] (Rec: 01/02/18 17:25 [facility] [email or web address]) Physical Therapy Assessment Progress Towards Goals Progress Towards Goals Progressing Toward Goals Assessment Summary Assessment Tabitha has been making great progress overall. She has been able to resume her walking and hiking routine and has started back at the gym. She has hjad no pain for several weeks. She did have a set back this past week after climbing into and out of her daughters tall pickup truck. Today though we worked on a few manual therapy techniques to align her SI joint and she left treatment without any pain. Left posterior innominant rotation MET correction worked well for Tabitha as she was able to tolerate all her mat exercises . We reviewed core stabilization exercies and will go back to standing dynamic exercises next week. Tabitha would benefit from continued PT Physical Therapy Plan Frequency and Duration Frequency of Treatment 2x/Week Duration of Treatment 8 weeks Plan of Care Start Date 12/10/17 Plan of Care End Date 02/04/18 Therapeutic Interventions Therapeutic Interventions Home Exercise Program Manual Therapy Neuromuscular Re-education Self-Care/Home Management Soft Tissue Mobilization Therapeutic Exercises Modalities Cold Pack/Ice Massage Ultrasound Next Visit Focus/Plan Next Note Type Treatment Note Next Visit Plan reassess leg length and innominant rotation and position of the SI joint
--- NOTE | 2018-01-05 17:48 | PT.OPPOC ---
Current Diagnoses Low back pain (01/02/18) Provider Visit Care Team Role Provider Type Radha Haynes MD Attending Provider Non-Staff Primary Care Provider Specialty: Family Practice Address: [address] [facility], [place], [address] Email: Plan Of Care PT-OP-T Assessment and Plan Start: 09/12/17 17:34 Freq: Status: Active Protocol: Document 01/02/18 17:03 [facility] (Rec: 01/02/18 17:25 [facility] [email or web address]) Physical Therapy Assessment Progress Towards Goals Progress Towards Goals Progressing Toward Goals Assessment Summary Assessment Tabitha has been making great progress overall. She has been able to resume her walking and hiking routine and has started back at the gym. She has hjad no pain for several weeks. She did have a set back this past week after climbing into and out of her daughters tall pickup truck. Today though we worked on a few manual therapy techniques to align her SI joint and she left treatment without any pain. Left posterior innominant rotation MET correction worked well for Tabitha as she was able to tolerate all her mat exercises . We reviewed core stabilization exercies and will go back to standing dynamic exercises next week. Tabitha would benefit from continued PT Physical Therapy Plan Frequency and Duration Frequency of Treatment 2x/Week Duration of Treatment 8 weeks Plan of Care Start Date 12/10/17 Plan of Care End Date 02/04/18 Therapeutic Interventions Therapeutic Interventions Home Exercise Program Manual Therapy Neuromuscular Re-education Self-Care/Home Management Soft Tissue Mobilization Therapeutic Exercises Modalities Cold Pack/Ice Massage Ultrasound Next Visit Focus/Plan Next Note Type Treatment Note Next Visit Plan reassess leg length and innominant rotation and position of the SI joint Plan of Care Dates Plan of Care Start Date 12/10/17 Plan of Care End Date 02/04/18 Please Sign and Return: I have reviewed this Plan of Care and certify that the skilled therapy services above are required to meet the patient?s needs. Physician Signature Date Printed Name and Credentials Clinical Instructor Signature Printed Name and Credentials
--- NOTE | 2018-01-07 17:27 | PT.OTN ---
Current Diagnoses Low back pain (01/07/18) Physical Therapy Treatment Note PT-OP-A Visit Information Start: 09/12/17 17:34 Freq: Status: Active Protocol: Document 01/07/18 17:19 [facility] (Rec: 01/07/18 17:27 [facility] [email or web address]) Out-Patient Physical Therapy Visit Information Visit Information Visit Type Treatment Note Visit Start Time 16:00 Visit Stop Time 16:45 Total Visit Minutes 45 Visit Number 9 PT-OP-B Current Condition Start: 09/12/17 17:34 Freq: Status: Active Protocol: Document 09/11/17 10:00 [facility] (Rec: 09/12/17 17:47 [facility] [email or web address]) Current Condition History of Current Condition Onset Date 3 1/2 weeks ago pain began following a hike Current Complaints c/o SI joint pain and left gluteal pain, pain across the anterior pelvis History of Current Condition 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 She reports she tries to get back into shape once school is out each year. She has done minimal walking this past school year. 3 1/2 weeks ago she went on a hike and up was uphill. She began noting pain in her SI joint and left gluteal region a few days afterward and the pain then increased over the next few days. 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 left leg being longer Treatment Goals Patient/Caregiver Goals tabitha's goals include knowing what stretches and strengthening exercises to do at home to prevent further pain and to return to hiking and walking PT-OP-C Subjective Start: 09/12/17 17:34 Freq: Status: Active Protocol: Document 01/07/18 17:19 [facility] (Rec: 01/07/18 17:27 [facility] [email or web address]) OP-PT Subjective Patient Comments Patient Comments Tabitha states her SI is still a little sore. She has been stretching and walking but can still feel symptoms PT-OP-F Manual Assessment Start: 09/12/17 17:34 Freq: Status: Active Protocol: Document 12/10/17 17:33 [facility] (Rec: 12/10/17 17:40 [facility] [email or web address]) Manual Assessments Soft Tissue Assessment Soft Tissue Mobility Assessment improving mobility of the iliopsoas and piriformis Joint Mobility Assessment Joint Mobility Assessment negative SI tests now PT-OP-J Posture/Palpation/Skin Start: 09/12/17 17:34 Freq: Status: Active Protocol: Document 09/11/17 10:00 [facility] (Rec: 09/12/17 18:07 [facility] [email or web address]) Posture Evaluation Position Standing L-Spine Posture Increased Lordosis Palpation Assessment Location Three Palpation Location B PSIS Palpation Findings Tenderness Two Palpation Location lumbar paraspinals Palpation Findings Soft Tissue Tightness Spasm Muscle Guarding One Palpation Location left piriformis Palpation Findings Soft Tissue Tightness Spasm Muscle Guarding Tenderness PT-OP-K Range of Motion Start: 09/12/17 17:34 Freq: Status: Active Protocol: Document 12/10/17 17:33 [facility] (Rec: 12/10/17 17:40 [facility] [email or web address]) Lumbar Spine Range of Motion Lumbar Spine Active Testing Position standing Flexion 80 Comments Improved Lumbar spine ROM into flexion PT-OP-M Strength Start: 09/12/17 18:07 Freq: Status: Active Protocol: Document 09/11/17 10:00 [facility] (Rec: 09/12/17 18:08 [facility] [email or web address]) Trunk Strength Trunk Manual Muscle Testing Core Stabilization Decreased activation of the transverse abdominal musculature and + ASLR test B Hip Strength Hip Manual Muscle Testing Right Extension (S1) 4 Good Abduction 4 Good Left Extension (S1) 3+ Fair+ Abduction 3+ Fair+ PT-OP-Q Treatments Start: 09/12/17 17:34 Freq: Status: Active Protocol: Document 01/07/18 17:19 [facility] (Rec: 01/07/18 17:27 [facility] [email or web address]) Cardio Equipment Elliptical Duration (Minutes) 5 Therapeutic Exercises Supine Exercises 6 Supine Exercise Name Roll outs with theraband 5 Supine Exercise Name adductor squeeze with ball Other Exercises 6 Other Exercise Name kiki pose Comments walk hands side to side 1 Other Exercise Name quadraped cat/cow, sidebends, thoracic rotation Side bilateral Reps/Minutes 10 reps Manual Therapy Treatment Soft Tissue Mobilization 1 Body Location soft tissue mobilization of the lumbar paraspinals and piriformis region Manual Techniques 2 Type manual LE stretching 1 Type MET for left posterior innominant rotation PT-OP-T Assessment and Plan Start: 09/12/17 17:34 Freq: Status: Active Protocol: Document 01/07/18 17:19 [facility] (Rec: 01/07/18 17:27 [facility] [email or web address]) Physical Therapy Assessment Assessment Summary Assessment 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 was reviewed today to help minimize sitting with a forward lean, also worked on soft tissue massage of the low back and piriormis Physical Therapy Plan Frequency and Duration Frequency of Treatment 2x/Week Duration of Treatment 8 weeks Plan of Care Start Date 12/10/17 Plan of Care End Date 02/04/18 Therapeutic Interventions Therapeutic Interventions Home Exercise Program Manual Therapy Neuromuscular Re-education Self-Care/Home Management Soft Tissue Mobilization Therapeutic Exercises Modalities Cold Pack/Ice Massage Ultrasound Next Visit Focus/Plan Next Note Type Treatment Note Next Visit Plan trial of returning to upright dynamic exercises if Liliana is able to
--- NOTE | 2018-01-21 17:11 | PT.OTN ---
Current Diagnoses Low back pain (01/21/18) Physical Therapy Treatment Note PT-OP-A Visit Information Start: 09/12/17 17:34 Freq: Status: Active Protocol: Document 01/21/18 17:00 [facility] (Rec: 01/21/18 17:11 [facility] [email or web address]) Out-Patient Physical Therapy Visit Information Visit Information Visit Type Treatment Note Visit Start Time 16:05 Visit Stop Time 16:50 Total Visit Minutes 45 Visit Number 10 PT-OP-B Current Condition Start: 09/12/17 17:34 Freq: Status: Active Protocol: Document 09/11/17 10:00 [facility] (Rec: 09/12/17 17:47 [facility] [email or web address]) Current Condition History of Current Condition Onset Date 3 1/2 weeks ago pain began following a hike Current Complaints c/o SI joint pain and left gluteal pain, pain across the anterior pelvis History of Current Condition 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 Her work keeps her very busy and she feels that she is not exercising as much during the school year. She reports she tries to get back into shape once school is out each year. She has done minimal walking this past school year. 3 1/2 weeks ago she went on a hike and up was uphill. She began noting pain in her SI joint and left gluteal region a few days afterward and the pain then increased over the next few days. 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 PT-OP-F Manual Assessment Start: 09/12/17 17:34 Freq: Status: Active Protocol: Document 12/10/17 17:33 [facility] (Rec: 12/10/17 17:40 [facility] [email or web address]) Manual Assessments Soft Tissue Assessment Soft Tissue Mobility Assessment improving mobility of the iliopsoas and piriformis Joint Mobility Assessment Joint Mobility Assessment negative SI tests now PT-OP-J Posture/Palpation/Skin Start: 09/12/17 17:34 Freq: Status: Active Protocol: Document 09/11/17 10:00 [facility] (Rec: 09/12/17 18:07 [facility] [email or web address]) Posture Evaluation Position Standing L-Spine Posture Increased Lordosis Palpation Assessment Location Three Palpation Location B PSIS Palpation Findings Tenderness Two Palpation Location lumbar paraspinals Palpation Findings Soft Tissue Tightness Spasm Muscle Guarding One Palpation Location left piriformis Palpation Findings Soft Tissue Tightness Spasm Muscle Guarding Tenderness PT-OP-K Range of Motion Start: 09/12/17 17:34 Freq: Status: Active Protocol: Document 12/10/17 17:33 [facility] (Rec: 12/10/17 17:40 [facility] [email or web address]) Lumbar Spine Range of Motion Lumbar Spine Active Testing Position standing Flexion 80 Comments Improved Lumbar spine ROM into flexion PT-OP-M Strength Start: 09/12/17 18:07 Freq: Status: Active Protocol: Document 09/11/17 10:00 [facility] (Rec: 09/12/17 18:08 [facility] [email or web address]) Trunk Strength Trunk Manual Muscle Testing Core Stabilization Decreased activation of the transverse abdominal musculature and + ASLR test B Hip Strength Hip Manual Muscle Testing Right Extension (S1) 4 Good Abduction 4 Good Left Extension (S1) 3+ Fair+ Abduction 3+ Fair+ PT-OP-Q Treatments Start: 09/12/17 17:34 Freq: Status: Active Protocol: Document 01/21/18 17:00 [facility] (Rec: 01/21/18 17:11 [facility] [email or web address]) Cardio Equipment Elliptical Duration (Minutes) 5 Gym Equipment Cable Column (Body Solid) Leg Curl Details hamstring curl Resistance 20# Reps/Time 2x10 Hip Abduction Resistance 20# Reps/Time 2x 10 Shuttle Rebound 1 Exercise Details leg press bilateral Reps/Duration 50 # 3 x 10 25# single leg Comments piriformis stretch on shuttle Therapeutic Exercises Supine Exercises 5 Supine Exercise Name adductor squeeze with ball Other Exercises 9 Other Exercise Name standing squats and lunges 5 Other Exercise Name TA in quadraped with opp arm lifts and opp leg lifts 3 Other Exercise Name TA isolation in quadraped Side bilateral Reps/Minutes 10 reps PT-OP-T Assessment and Plan Start: 09/12/17 17:34 Freq: Status: Active Protocol: Document 01/21/18 17:00 [facility] (Rec: 01/21/18 17:11 [facility] [email or web address]) Physical Therapy Assessment Assessment Summary Assessment initially with [place] Tabitha felt a little irritation in her pubic bone but after we focused on core work and ball squeeze for the adductors her pain was gone. We talked about holding off on any single leg activities if she is having any pubic pain Physical Therapy Plan Frequency and Duration Frequency of Treatment 2x/Week Duration of Treatment 8 weeks Plan of Care Start Date 12/10/17 Plan of Care End Date 02/11/18 Therapeutic Interventions Therapeutic Interventions Home Exercise Program Manual Therapy Neuromuscular Re-education Self-Care/Home Management Soft Tissue Mobilization Therapeutic Exercises Modalities Cold Pack/Ice Massage Ultrasound Next Visit Focus/Plan Next Note Type Treatment Note Next Visit Plan Tabitha will work on her own for a few weeks and will recheck back in 2-3 weeks. If she continues to do well she will be discharged to a independent home program
--- NOTE | 2018-04-29 09:37 | PT.OPDS ---
Current Diagnoses Low back pain (01/21/18) Provider Visit Care Team Role Provider Type Radha Haynes MD Attending Provider Non-Staff Primary Care Provider Specialty: Family Practice Address: [address] [place] [address], [place], [address] Email: Visit Number Visit Number 10 Discharge Summary PT-OP-B Current Condition Start: 09/12/17 17:34 Freq: Status: Active Protocol: Document 09/11/17 10:00 [facility] (Rec: 09/12/17 17:47 [facility] [email or web address]) Current Condition History of Current Condition Onset Date 3 1/2 weeks ago pain began following a hike Current Complaints c/o SI joint pain and left gluteal pain, pain across the anterior pelvis History of Current Condition Tabitha reports she works as a [employer] in the [employer]. Her work keeps her very busy and she feels that she is not exercising as much during the school year. She reports she tries to get back into shape once school is out each year. She has done minimal walking this past school year. 3 1/2 weeks ago she went on a hike and up was uphill. She began noting pain in her SI joint and left gluteal region a few days afterward and the pain then increased over the next few days. 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 PT-OP-F Manual Assessment Start: 09/12/17 17:34 Freq: Status: Active Protocol: Document 12/10/17 17:33 [facility] (Rec: 12/10/17 17:40 [facility] [email or web address]) Manual Assessments Soft Tissue Assessment Soft Tissue Mobility Assessment improving mobility of the iliopsoas and piriformis Joint Mobility Assessment Joint Mobility Assessment negative SI tests now PT-OP-J Posture/Palpation/Skin Start: 09/12/17 17:34 Freq: Status: Active Protocol: Document 09/11/17 10:00 [facility] (Rec: 09/12/17 18:07 [facility] [email or web address]) Posture Evaluation Position Standing L-Spine Posture Increased Lordosis Palpation Assessment Location Three Palpation Location B PSIS Palpation Findings Tenderness Two Palpation Location lumbar paraspinals Palpation Findings Soft Tissue Tightness Spasm Muscle Guarding One Palpation Location left piriformis Palpation Findings Soft Tissue Tightness Spasm Muscle Guarding Tenderness PT-OP-K Range of Motion Start: 09/12/17 17:34 Freq: Status: Active Protocol: Document 12/10/17 17:33 [facility] (Rec: 12/10/17 17:40 [facility] [email or web address]) Lumbar Spine Range of Motion Lumbar Spine Active Testing Position standing Flexion 80 Comments Improved Lumbar spine ROM into flexion PT-OP-M Strength Start: 09/12/17 18:07 Freq: Status: Active Protocol: Document 09/11/17 10:00 [facility] (Rec: 09/12/17 18:08 [facility] [email or web address]) Trunk Strength Trunk Manual Muscle Testing Core Stabilization Decreased activation of the transverse abdominal musculature and + ASLR test B Hip Strength Hip Manual Muscle Testing Right Extension (S1) 4 Good Abduction 4 Good Left Extension (S1) 3+ Fair+ Abduction 3+ Fair+ PT-OP-T Assessment and Plan Start: 09/12/17 17:34 Freq: Status: Active Protocol: Document 04/29/18 09:36 [facility] (Rec: 04/29/18 09:37 [facility] [email or web address]) Physical Therapy Assessment Assessment Summary Assessment Overall Tabitha has made treat progress with PT and is independent with a home program. She will be discharged at this time Physical Therapy Plan Discharge Physical Therapy Discharge Reasons Goals Met
== END 2018-04-29 16:21 ==
LOC: PHYS 16:00
PROVIDERS: PCP Family Medicine; Visit Provider Family Medicine
DX: M54.5 Low back pain (principal)
CPT/HCPCS: 97110; 97140; 97161